=== PATIENT | female | born 1980 | race African-American/Black ===

== ENCOUNTER 2018-04-13 13:56 | Emergency (ER) | payer OTHER ==
[2018-04-13] MEDS ORDERED: OXYCODONE-ACETAMINOPHEN 5-325 MG TABLET PO ONE (14:40)
[2018-04-13] MEDS ORDERED: ONDANSETRON 4 MG TAB.RAPDIS PO ONE (14:40)
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
[2018-04-13 18:15] VITALS: BP 114/69
--- NOTE | 2018-04-13 20:40 | EKG REPORT ---
SEVERITY:- NORMAL ECG - SINUS RHYTHM : Confirmed by: Roman Cole 13-Apr-2018 17:39:37
== END 2018-04-13 18:15 | disposition home or self-care (01) ==
LOC: ER 13:56
DX: S16.1XXA Strain of muscle, fascia and tendon at neck level, initial encounter (principal); S39.012A Strain of muscle, fascia and tendon of lower back, initial encounter; R07.89 Other chest pain; R51 Headache; M54.2 Cervicalgia; M54.9 Dorsalgia, unspecified; V49.40XA Driver injured in collision with unspecified motor vehicles in traffic accident, initial encounter; R11.0 Nausea
CPT/HCPCS: 93005; 99284; 81025; 71046; 72110; 72070; 70450; 72125; 93010; S0119